=== PATIENT | male | born 2005 | race Caucasian/White ===

== ENCOUNTER 2025-09-02 08:00 | Outpatient (RCR) | payer OTHER, SELFPAY ==
--- NOTE | 2025-09-02 09:00 | BH.PSA_ITS ---
Source of Information Presenting Problems/Circumstances Problems, Referral Source, Mental Status, Client: Recently admitted for psychosis from 07/20/25-07/29/25 at [facility]. Over the course of a couple weeks prior to admission pt displayed disorganized thoughts, delusions, restorationist pre-occupation, and hallucinations. According to pt he believed that he was a prophet and ruminating extensively on paranoid delusions that certain individuals had plans to attack him. There no specific trigger however pt dean eves that increased substance use (LSD/cannabis) more than likely significantly contributed to his episode Psychiatric Presentation Psych Issues & Need for Admission Psychiatric Issues:: Recent psychosis (delusions, hallucination, racing thoughts, disorganized thoughts, restorationist pre-occupation). Hx of substance use (LSD, cannabis). Mental health impacting functioning (withdrew from college, psychiatric admission). Past Psychiatric History MH Treatment Hx Treatment History: No mental health treatment history First hospitalization:: [facility] (07/20/25-07/29/25) Most recent hospitalization:: refer above Medication Trials:: No ECT Therapy:: No Age of first mental health symptoms: Pt reports that he began to notice mental health symptoms at age 18. He reports situational stressors which would result in depressive episodes. Describe (age, circumstance, etc) any past hospitalizations: First h ospitalization occurred on 07/20/25 due to psychosis. Current providers for mental health treatment (counselor, psychiatrist, therapeutic case manager, etc.): Kei Johnson, customer expert at [place] [id number] Development & Family of Origin Childhood Significant Childhood Events: Pt reports that he was bullied quiet extensively during elementary school which contributed to his social anxiety. Family Who currently lives in your home?: Currently living with his parents and younger sister (16). Family History Family Hx of Psychiatric or AOD Problems: Mother- substance-induced psychosis. Ethnicity Culture Do you identify yourself with any particular cultural, ethnic background, or community?: No Sexuality Sexual Orientation: Heterosexual Spirituality Scientologist Do you currently identify with any organized sabianist?: Spirtual Beliefs Is there a particular form of support from this community you can use for your recovery?: No Mental Status Memory Recent Memory: Fair Remote Memory: Fair Concentration Concentration: Fair Eye Contact Eye Contact: Fair Speech Speech: Articulate Thought Process Thought Process: Logical Insight: Fair Judgment: Fair Delusions: Grandiose (Prior to psychiatric admission he believed himself to be a prophet) and Paranoid (Prior to psychiatric admission he reports delusions that individuals where planning on attacking him.) Orientation Orientation: Time, Person and Situation Appearance Appearance: Appropriate Mood Mood: Ambivalent Affect Affect: Appropriate/calm Suicide Assessment Suicidal Ideation Have you ever felt like hurting yourself?: No Physician Notification Violent Behavior/Abuse History Homicidal Ideation Do you have any homicidal thoughts? If so, explain:: No Abuse Have you ever been abused?: No Life Events Are there any other significant life events?: Hardships (Recently withdrew from college due to mental health struggles.) Describe significant life events: Hx of bullying in elementary school. Safety Do you ever feel threatened in your home? If yes, describe:: No Adult Social History Age 17 to Present Describe your current support system:: Parents are primary support. I tell my mom everything Substance Use Substance Substance Use Type: Alcohol, Hallucinogens (LSD, Mushrooms), Marijuana and Caffeine Specific Drugs What specific drugs have you used?: Hallucinogens- Pt reports using LSD three times over the summer. Insight that his mental health decompensation and psychosis began to gradually occur. Currently sober as he understands link between drug use and recent psychotic episode Cannabis- frequent daily use, insight that cannabis may be linked to his mental health decompensation and psychosis. Alcohol- very rarely IV Substance Use Do you have a history of IV use?: denies Additional Information Additional Comments:: Pt reports that his mental health began to struggle after his hallucinogen use and was exacerbated by his cannabis use. Leisure/Social Activities Interests What do you enjoy or might be interested in learning about?: Pt reports that his brain is scattered and he would like to learn ways to maintain a healthy routine and stay on track. 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 Have you ever been in the ?: No Legal History Records Have you had any past legal charges?: No Do you have any current legal charges?: No Have you ever been incarcerated? 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 What are the client's goals?: focus on psychoeducation on Bipolar as well as coping strategies for ross/hypomania and depressive episodes What are the client's strengths?: intelligent, goal-oriented, and future- oriented Diagnoses Diagnoses Diagnosis #1:: Substance-induced psychotic disorder: Interpretive Summary Interpretive Summary Interpretive Summary: Pt is a 20 year old male with dx of Bipolar I, severe, most recent episode manic. Recently admitted for psychosis from 07/20/25-07/29/25 at [facility]. Over the course of a couple weeks prior to admission pt displayed disorganized thoughts, delusions, restorationist pre- occupation, and hallucinations. According to pt he believed that he was a prophet and ruminating extensively on paranoid delusions that certain individuals had plans to attack him. There no specific trigger however pt believes that increased substance use (LSD/cannabis) more than likely significantly contributed to his episode. No previous hx of ross or psychosis. Oddly enough his mother had a similar psychotic event around his age which was substance induced. His episode occurred on the campus of his college and a few of his delusions include peers and even a professor. Currently he withdrew from his classes and is living at home. Believes that his medications are helping however continues to report racing thoughts and brain fog. Endorses moderate depression due to abupty changes (stopped college, moved back home, psychiatric admission) with feelings of loneliness and isolation. Denies HI. No overt psychosis noted since discharge with the exception of an auditory hallucination which pt described as a voice from God. Hx of LSD and cannabis use, however sober since psychiatric admission. Treatment Plan Recommendations Recommendations Guidelines Recommendations:: Meets criteria for [facility] level of care due to recent psychiatric hospitalization, limited healthy coping skills, and mental health impacting his functioning. Will admit to IOP to prevent decompensation/re-admission to psych unit, stabilize mood, increase healthy coping, and improve functioning to return to school.
--- NOTE | 2025-09-02 09:00 | BH.COMM_ITS ---
Communication Note Communication with Client Communication Note: Met with pt to complete paperwork, update any changes to pre-admission screening, and complete risk assessment. Low risk on [place] [facility] Scre[facility]. Consulted with Dr. Ortiz regarding current symptoms with orders to admit to IOP with dx of F31.13
--- NOTE | 2025-09-02 09:00 | BH.MTP ---
[facility] Treatment Plan Patient Information Program Physician:: Dr. Leonor Ortiz Primary Therapist:: Nadir Conte Psychiatric Diagnoses Psychiatric Diagnoses:: Substance-induced psychotic disorder Diagnosis Code(s):: F12.150 Estimated LOS Estimated LOS (in weeks):: 6 Problem/Goal #1 Problem/Goal #1 Stated Goal:: Stabilize psychiatric symptoms and maintain abstinence from substances to prevent recurrence of psychosis and promote safe, independent functioning. Description of Barriers: Stigma associated with mental health. First psychotic episode. Daily cannabis use for extended periods. Functional Impact: Recent psychiatric admission due to psychosis. Onset of psychosis was gradual with delusions that impacted his academic performance, attendance, and relationships with peers/professors. Also had to withdraw from courses due to psychosis. Goal Relevant Strengths/Supports: Intelligent. Hard-working. Future-oriented. Primary support are his parents. Objectives Objective #1: Stated Objective: Client will identify the relationship between substance use and psychotic symptoms Interventions: Provide psychoeducation about substance-induced psychosis, emphasizing the link between substance use and psychiatric symptoms. Discharge Criteria: Sustained abstinence from substances for a clinically appropriate period. Stabilization of psychotic symptoms?no active hallucinations, delusions, or disorganized behavior interfering with functioning.Medication adherence and understanding of treatment importance. Target Date: 10/31/25 Review Date: 10/03/25 Objective #2: Stated Objective: Client will identify and utilize 3 coping strategies to manage cravings, emotional distress, or early warning signs of relapse or psychosis. Interventions: Facilitate motivational interviewing to enhance readiness for change and support abstinence. Implement CBT and relapse prevention strategies to identify triggers, challenge maladaptive thoughts, and develop alternative coping skills. Discharge Criteria: Development of relapse prevention plan and identification of support network. Improved insight and judgment regarding the connection between substance use and psychosis. Target Date: 10/31/25 Review Date: 10/03/25
--- NOTE | 2025-09-02 09:15 | BH.MDN ---
Multi-Disciplinary Note Note 45-min Individual: Time Started:: 09:15 Date: 09/02/25 Purpose of session/treatment goals addressed:: Used the session to review program rules and expectations. Also gather pertinent psychosocial history and current symptoms. Began to develop treatment plan. Eye Contact:: Intense Motor Activity:: Slowed Appearance:: Casual Speech:: Appropriate Mood:: Anxious Affect:: Congruent Thoughts:: Linear, Logical and No evidence of hallucinations/delusions noted Staff Interventions:: rapport building, treatment planning, completed risk assessment / safety planning ([facility] S-CRSS completed) and other (obtained psychosocial history) Client Response:: Cooperative and wiling to discuss his psychosocial history and recent mental health decompensation. Pt reports mental health decompensation in July which led to a hospitalization for psychosis from 07/20/25-07/29/25 at [facility]. Over the course of a couple weeks pt displayed disorganized thoughts, delusions, denominational pre-occupation, and hallucinations. There no specific trigger however pt believes that increase substance use (LSD/cannabis) more than likely significantly contributed to his episode. No previous hx of ross or psychosis. Oddly enough his mother had a similar psychotic event around his age which was substance induced. His episode occurred on the campus of his college and a few of his delusions include peers and even a professor. Currently he withdrew from his classes and is living at home. Believes that his medications are helping however continues to report racing thoughts and brain fog. Risks/Concerns:: No risks or concerns noted. Low risk on [place] [facility]icide Screening Progress Toward Goals/Plan:: No progress noted as this is pt's first day in [facility] level of care. Plan is to admit to [facility] level of care due to prevent decompensation/ re-admission to hospital, stabilize mood, increase healthy coping, and improve functioning. Time Stopped:: 10:00
--- NOTE | 2025-09-02 10:10 | BH.SGPN.GN ---
Behaviors/Verbalizations/Mental Status: []Pt alert and oriented, neatly dressed and groomed. Eye contact fair. Motor activity appropriate. Speech within normal limits. Affect congruent, mood anxious. Thoughts linear, logical, no signs of hallucinations or delusions Client Response/Progress/Benefit: [] Pt took notes and contributed to group discussions. Attentive during psychoeducation on growth mindset. Interactive group discussion on fixed mindset in which group verbalized their current fixed mindsets and how they affect their mental health. Pt shared common fixed mindset thoughts they have. Pt shared a personal fixed thought I won?t be able to get better in school?. Pt able to connect negative impact fixed thoughts have on functioning. Pt benefited from increased awareness of growth mindset and fixed thoughts and how fixed thoughts impact their mental health. Will continue IOP tx to promote healthy coping skills, challenge distorted thoughts, and prevent decompensation.
--- NOTE | 2025-09-02 11:10 | BH.SGPN.GN ---
Behaviors/Verbalizations/Mental Status: []Pt alert and oriented, neatly dressed and groomed. Eye contact good. Motor activity appropriate. Speech within normal limits. Affect congruent, mood anxious. Thoughts linear, logical, no signs of hallucinations or delusions. Client Response/Progress/Benefit: [] Pt was an active participant during activity and discussion. Pt did well to remain attentive and participate as group worked on identifying characteristics and benefits of adopting a growth mindset. Worked with fellow participants in reframing the example fixed thoughts into growth mindset thoughts. Pt worked on changing own fixed thought. Pt?s reframed thought was ?I can keep getting help.? Pt attentive during discussion about different strategies that can help with fostering a growth mindset. Pt appeared to benefit from challenging own thoughts and engaging in the activity. Pt will continue IOP tx to prevent decompensation, gain healthy coping skills, and reduce use of substances. Narrative Note: []
--- NOTE | 2025-09-04 09:00 | BH.SGPN.GN ---
Behaviors/Verbalizations/Mental Status: [] Pt alert and oriented, Casually dressed and groomed. Eye contact good. Motor activity appropriate. Speech within normal limits. Affect congruent, mood anxious. Thoughts linear, logical, no signs of hallucinations or delusions. Reviewed pt?s symptom tracker today, denies suicidal ideation, plan, and intent.09/04/25. Client Response/Progress/Benefit: []Pt was an active participant in group discussions. Attentive. Per patients daily symptom tracker, pt indicates a 0/5 for depression and a 3/5 for anxiety, with 5 being severe. Pt's mental health positive was getting together a gym routine and working out regularly which, he states had been a goal for a long time. His other mental health win was making through his first few days of IOP, and was encouraged by peers who gave advice about the program and how to get the most out of it. Pt's stressor was showing up a few minutes late to group, stating that not being early makes him very anxious. Pt was supportive and attentive to others in the group. Pt seemed to benefit from support from peers. Will continue IOP tx to promote healthy coping mechanisms, reduce negative thinking patterns, and prevent decompensation.
--- NOTE | 2025-09-04 10:10 | BH.SGPN.GN ---
Behaviors/Verbalizations/Mental Status: [] Pt alert and oriented, casually dressed and groomed. Eye contact good. Motor activity appropriate. Speech within normal limits. Affect constricted, mood anxious. Thoughts linear, logical, no signs of hallucinations or delusions. Client Response/Progress/Benefit: [] Pt responded well to session AEB pt listening attentively to others and providing input throughout group discussions. Pt worked with group to identify potential barriers to effective problem-solving. Pt attentive and engaged during psychoeducation about the different problem-solving styles (impulsive-careless, avoidant, and problem solving). Pt shared current problem-solving style they utilize is avoidance style.? Pt seemed to benefit from increased awareness of current problem-solving style and the impact this style has on their mental health. Will continue IOP tx to prevent decompensation, improve daily functioning, and increase healthy coping skills.
--- NOTE | 2025-09-04 11:00 | BH.SGPN.GN ---
Behaviors/Verbalizations/Mental Status: []Client alert and oriented, casually dressed and groomed. Eye contact good. Motor activity appropriate. Speech within normal limits. Affect congruent, mood euthymic. Thoughts linear, logical, no signs of hallucinations or delusions. Client Response/Progress/Benefit: [] Pt engaged in session AEB contributing to discussion and engaging in small group. Attentive during discussion on strategies for more effectively solving problems in personal life. Pt participated in small group for activity and did well practicing problem-solving skills with the group in the moment. Pt identified a current problem they are struggling to solve as: managing mental health sx in healthy ways. Reports next step in resolving this as: continue IOP to learn new coping skills. Appeared to benefit from gaining strategies to help Pt better manage daily problems. Will continue IOP tx improve distress tolerance, challenge distortions, and prevent decompensation. Narrative Note: []
--- NOTE | 2025-09-06 09:00 | BH.SGPN.GN ---
Behaviors/Verbalizations/Mental Status: [] Eye contact is good. Motor activity is appropriate. Appearance is casual. Speech is Appropriate. Mood is anxious. Affect is congruent. Thoughts are linear and logical. No evidence of psychosis. Reviewed daily check in sheet and no reports of suicidal ideations or intent. Client Response/Progress/Benefit: [] Pt participated when prompted. Attentive. Daily symptom tracker notes 2/5 for anxiety and 1/5 for depression. According to pt he feels ?less stressed and irritable?. Believes that he is able to ?let things go easier?. He identified situational stressors however overall reports improvement since discharging from the psychiatric unit. Progress noted. Benefited from group support, encouragement, and feedback. Will continue in IOP to prevent decompensation/re-admission, stabilize mood, and improve functioning to return to school. Narrative Note: []
--- NOTE | 2025-09-06 09:40 | PCM.BH.PSYEV ---
Intake Vital Signs 09/06/25 11:01 Height 1.75 m Weight: 81.647 kg BP 144/76 H Pulse 78 Intake Visit Reasons: recent psychosis Allergies No Known Allergies Allergy (Verified 09/06/25 10:49) Medications ?Medication ?Instructions ?Recorded ?Confirmed ?Type lithium carbonate 600 mg capsule 1,200 mg PO QHS 09/06/25 09/06/25 History olanzapine 15 mg tablet 15 mg PO DAILY 09/06/25 09/06/25 History HPI () History of Present Illness History provided by: patient Chief complaint: IOP intake for psychosis HPI: Kevin is a 20y/o male who presented to [facility] IOP program for further evaluation and treatment of substance-induced psychotic disorder. Patient recently admitted to [facility] Psych unit from 07/20/2025 through 07/29/2025 due to psychosis. Reportedly patient went off to college several years ago and since 2022 has had escalating cannabis use and has used high doses of acid and mushrooms several times, the past 6 months he has had heavy daily cannabis use and notes that on 07/12 after smoking he became very paranoid and thought that people were trying to kill him. During that time he also had racing and disorganized thoughts with latter-day preoccupation and had heard a voice from God. The symptoms escalated and ultimately his mother took him to the hospital and he was admitted. While he was there he still struggled with delusions at the beginning however by discharge his psychotic symptoms significantly improved and he primarily was having difficulty with racing thoughts. Today patient reports he still having some problem with racing thoughts but that it is progressively improving with the Zyprexa and lithium, did recently have increase in lithium and decrease in Zyprexa, he reports that this was based on blood levels of the lithium and not any resurgence of symptoms. Notes tolerating Zyprexa and lithium fairly well but did initially have increased appetite but that is leveled off and notes sometimes he feels groggy but that his energy is average but will get sleepy around 3 or 4 and then around 730 or 8. Concentration and memory are improving, sleeping well but sleeping what he thinks is too much, around 12 hours a day. Appetite is good and is leveling out. No crying spells, no SI/HI. No AH/VH at this time. Does report he had an episode when he first smoked where he felt very paranoid but after he went to bed and woke up he felt fine. Notes that he does think that the acid and mushrooms may have also contributed to some underlying paranoia in addition to the cannabis but had not used either immediately preceding the psychotic episode. 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 [employer] and has been keeping busy, presently out of school due to some scheduling problems and being in hospital but hopeful to go back next semester Current psychiatric medications: Zyprexa 15 mg and lithium 1200 mg Side effect concerns: A little drowsy with the medciations Past psychiatric treatment Hx: -Psychiatrist: Is now seeing someone at [place] [id number] -Psychiatric hospitalizations: Only hospitalization was last month for the psychotic episode -Suicide attempts: No -NSSI: Denies -Medication trials: Reports he was on 50 mg of Zoloft for anxiety and had been on it for a long time and did well on it, had been on it until early July when he was hospitalized -ECT or TMS?: No Medical Hx: -Medical problems: No -Surgeries: No -Allergies: Season -Medications: See home med list Substance use Hx: -Alcohol: Infrequently -Drugs: No current drug use, committed to not using marijuana moving forward, other than acid and mushrooms denies any other substance use -Rehab: Denies -Tobacco use: No Family Hx: -Mental illness: Mom had psychotic episode after drug use when she was around his age and no longer is on medication, sister with anxiety and depression -Suicide attempts or completions: No -Substance Use: No -General medical conditions: No Psychosocial: -Born/raised: [place], [place] -Childhood: Reports he had a good childhood except in elementary school he was bullied which caused anxiety -Parents: Presently living with mom and dad and gets along with them well -Siblings: Has a sister who he also lives with presently -Current living situation and location: [place] with mom, dad, and sister -Marital status: Single -Children: Denies -Support system: Family -Highest level of education: Currently going to [employer] and living in an apartment off campus. 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 -Faith affiliation: Denies - hx: Denies -Access to guns: No -Legal problems: Denies Medical ROS: General: Denies fever HENT: Denies headache EYES: Denies acute changes in vision Resp: denies shortness of breath Cardiac: Denies chest pain GI: denies changes in bowel, denies nausea/vomiting : Denies changes in urination MSK: Denies weakness Neuro: Denies any numbness/tingling Heme: Denies any bleeding or bruising Skin: Denies rashes Psychiatric: As above Exam () Mental Status Exam- Psych () Appearance casually dressed, adequately groomed and no apparent distress Attitude cooperative and calm Activity/Motor Behavior psychomotor slowing Speech other (Little bit slow) Mood anhedonic Affect constricted Thought Process linear and other (At times would have to ask me to repeat a question but then able to answer ) Thought Content no delusions and no hallucinations Suicidal Ideation none Homicidal Ideation none Attention impaired Concentration impaired Sensorium/Orientation awake and alert Memory/Cognition intact Insight fair Judgement fair Assessment & Plan () Assessment & Plan (1) Substance-induced psychotic disorder: Plan: 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 Patient had been smoking marijuana heavily for 6 months and became paranoid, he thought people were going to kill him and his thoughts became disorganized and were racing. He had latter-day delusions and auditory hallucinations. Presently on Zyprexa and lithium, reports his thoughts are slowing down and has no further psychotic symptoms per patient. Recently had increase in lithium and decrease in Zyprexa and this is being actively managed on an outpatient basis, will continue medications at this time. Plan Detail Assessment: The patient will begin IOP in Behavioral Health at [facility]. The program's structure, support, education, and therapy aim to prevent deterioration of symptoms and avoid the need for PHP or inpatient hospitalization. I have a reasonable expectation that the patient will make practical improvements in their presenting symptoms and will be discharged to a lower level of care. Charges/Coding Behavior Health Behavior Health Psychiatric Evaluation: 92868 Psych Diag Exam w/ Medical Services
--- NOTE | 2025-09-06 09:41 | BH.PSY.EVA_ITS ---
Initial Treatment Plan Patient Information Visit Information: ADMISSION DATE: EXPECTED LOS: 6-8 weeks Diagnoses:: Substance induced psychotic disorder Problems/Symptoms Problem #1:: Substance-induced psychotic disorder Symptom:: paranoid, he thought people were going to kill him and his thoughts became disorganized and were racing. He had mandaen delusions and auditory hallucinations
--- NOTE | 2025-09-06 10:10 | BH.SGPN.GN ---
Behaviors/Verbalizations/Mental Status: [] Pt alert and oriented, casually dressed and groomed. Eye contact good. Motor activity appropriate. Speech within normal limits. Affect congruent, mood euthymic. Thoughts linear, logical, no signs of hallucinations or delusions. Client Response/Progress/Benefit: [] Client engaged during group session as evidenced by contributions during group discussions, appearing to listen to others, and taking notes. Client engaged in small group discussion about barriers that keep people from having difficult conversations. Group identified potential reasons individuals avoid difficult conversations which included; feeling uncomfortable, reaction of others, fear, and not in a good place mentally. Group also identified benefits to having crucial conversations. Client seemed to benefit from increased awareness and education about importance of having difficult conversations and recognizing the impact of avoiding such conversations. Client to continue IOP to prevent decompensation, increase healthy coping, and improve functioning. Narrative Note: []
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
[2025-09-06 11:01] VITALS: BP 144/76; PULSE 78
--- NOTE | 2025-09-06 11:10 | BH.SGPN.GN ---
Behaviors/Verbalizations/Mental Status: [] Pt alert and oriented, casually dressed and groomed. Eye contact good. Motor activity appropriate. Speech within normal limits. Affect congruent, mood euthymic. Thoughts linear, logical, no signs of hallucinations or delusions. Client Response/Progress/Benefit: [] Pt was an active participant, engaged in activities and discussion. Pt able to identify ways they negatively contribute to crucial conversations and pt was engaged during psychoeducation of the different ways to build interpersonal effectiveness skills. Pt and peers practiced mirroring and active listening in partners. Group reviewed DEAR [employer] and used the handout to help map out how they would like a crucial conversation in their life to go. Pt shared with group that they want to have a crucial conversation with girlfriend about taking a break from dating so he can focus on his MH. Pt will continue IOP tx to prevent decompensation and improve daily functioning. Narrative Note: []
--- NOTE | 2025-09-16 10:10 | BH.SGPN.GN ---
Behaviors/Verbalizations/Mental Status: []Pt alert and oriented, casually dressed and groomed. Eye contact good. Motor activity appropriate. Speech within normal limits. Affect congruent, mood content and anxious. Thoughts linear, logical, no signs of hallucinations or delusions. Client Response/Progress/Benefit: []Pt participated during small group discussions. Attentive during psychoeducation about defense mechanisms. Showed engagement during small group discussions and helped group identify which defense mechanisms were maladaptive, adaptive, or ?somewhere in the nina.? Pt worked with small group on identifying how each defense mechanism can impact mental health and gave examples. Pt stated he learned that he uses rationalization at times.?Pt reported benefit from normalizing why people use maladaptive defense mechanisms. Seemed to benefit from gaining awareness about the different defense mechanisms. Pt to continue IOP tx to prevent decompensation, improve daily functioning, and gain healthy coping skills. Narrative Note: []
== END 2025-09-06 23:59 ==
LOC: BHIOP 08:00
PROVIDERS: Referring Provider Internal Medicine; Visit Provider Internal Medicine
DX: F12.150 Cannabis abuse with psychotic disorder with delusions (principal)
CPT/HCPCS: S9480; 90834; 90853

== ENCOUNTER 2025-09-09 08:36 | Outpatient (RCR) | payer OTHER, SELFPAY ==
--- NOTE | 2025-09-09 09:00 | BH.SGPN.GN ---
Behaviors/Verbalizations/Mental Status: [] Pt alert and oriented, neatly dressed and groomed. Eye contact good. Motor activity appropriate. Speech within normal limits. Affect constricted, mood euthymic. Thoughts linear, logical, no signs of hallucinations or delusions. Reviewed pt?s symptom tracker, no risk for suicidal ideation, plan, or intent 09/09/25. Client Response/Progress/Benefit: []Pt was an active participant in group discussions. Attentive. Able to identify mental health wins including ?I went to a trunk or treat event and it was actually fun? and pt shared he usually would shut down, but he used his calming skills. 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 The group offered pt suggests managing this stressor and emotional support which pt reported was helpful. Pt is feeling ?better than neutral? this morning. Pt receptive to feedback from peers. Benefited from group support, encouragement, and feedback. Progress noted. Will continue IOP tx to prevent decompensation, improve self-confidence, and gain healthy coping skills. ??? Narrative Note: []
--- NOTE | 2025-09-09 10:10 | BH.SGPN.GN ---
Behaviors/Verbalizations/Mental Status: []Eye contact good, Motor activity is appropriate, Appearance is neat. Speech appropriate. Mood calm. Affect congruent. Thoughts are linear and logical. No evidence of psychosis. Client Response/Progress/Benefit: [] Pt was an active participant during interactive group discussions. Attentive during discussion of the different types of boundaries (rigid, porous, healthy) Took notes and provided input. Contributed to the discussion on defining boundaries and the benefits and barriers to them. Active participant in the boundary continuum activity. Identified boundary type as more rigid and stating that he struggles with setting boundaries too quickly. Group discussed mental health benefits to establishing boundaries, and situations in which lessening boundaries are appropriate. Pt benefited from increased awareness and insight on the importance of boundary setting. Pt will continue in IOP to prevent decompensation, improve daily functioning, and gain healthy coping skills. ? Narrative Note: []
--- NOTE | 2025-09-09 11:10 | BH.SGPN.GN ---
Behaviors/Verbalizations/Mental Status: []Pt alert and oriented, casually dressed and groomed. Eye contact fair. Motor activity appropriate. Speech within normal limits. Affect congruent, mood anxious. Thoughts linear, logical, no signs of hallucinations or delusions. Client Response/Progress/Benefit: [] Client responded well to session AEB listening attentively to peers, providing input, as well as taking notes throughout. Group discussed different styles of boundary setting. Participated in small group discussion brainstorming various strategies for improving healthy boundary setting. Pt took time to complete reflection on which skills would like to implement to improve boundaries. Seemed to benefit from increased awareness of how different boundary styles can impact mental health.Pt stated he learned that he struggles most with respecting others time boundaries because he is often late to places. Pt reported he wants to work on improving his boundaries by using reminders and alarms to make sure he leaves for appointments on time. Will continue IOP tx prevent decompensation, challenge distorted thoughts, and increase consistent use of healthy coping skills.
--- NOTE | 2025-09-11 09:00 | BH.SGPN.GN ---
Behaviors/Verbalizations/Mental Status: [] Pt alert and oriented, Casually dressed and groomed. Eye contact fair. Motor activity appropriate. Speech within normal limits. Affect congruent, mood depressed. Thoughts linear, logical, no signs of hallucinations or delusions. Reviewed pt?s symptom tracker today, denies suicidal ideation, plan, and intent.09/11/25. Client Response/Progress/Benefit: []Pt was an active participant in group discussions. Attentive. Per patients daily symptom tracker, pt indicates a 2/5 for depression and a 2/5 for anxiety, with 5 being severe. Pt's mental health positive was contacting his academic advising director about his current school progress and classes that he needs to take in order to get back on track. Pt stated that he will have to take a summer class, which is not ideal. Pt's other mental health win was getting in contact with a friend who could get him a fellowship job over the summer. Pt's stressor is figuring out how to balance his summer fellowship and the class that he will have to take to stay on track with school. Pt stated that he is going to talk to his advisor about this. Pt seemed to benefit from support from peers. Will continue IOP tx to promote healthy coping mechanisms, reduce negative thinking patterns, and prevent decompensation.
--- NOTE | 2025-09-11 10:30 | BH.MDN ---
Multi-Disciplinary Note Note 30-min Individual: Time Started:: 10:30 Date: 09/11/25 Purpose of session/treatment goals addressed:: Utilized session to review current progress and symptoms. Provided psychoeducation on link between cannabis and psychosis. Eye Contact:: Good Motor Activity:: Appropriate Appearance:: Casual Speech:: Appropriate Mood:: Depressed Affect:: Congruent Thoughts:: Linear, Logical and No evidence of hallucinations/delusions noted Staff Interventions:: psychoeducation on: (Link between cannabis and psychosis.), CBT techniques, treatment planning and goal setting Client Response:: pt reports being more depressed this week. Met with his college advisors and learned of obstacles to getting back to college. Admits to struggling with recent changes and transition from college life (academics, social events, etc) to living back at home after his psychiatric admission. 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 Also reports limited social outlets I have no friends around here. Attempted to reframe additional free time as an opportunity and stressed the importance of rest after psychotic episode. We used the session to discuss recent psychoeducation on the link between cannabis and psychosis. Pt has insight that his cannabis and LSD use significantly impacted prolonged psychosis. Currently rare urges for cannabis however consequences are still very fresh in his mind. Using consequences as relapse prevention strategy. He plans on returning to college next semester and is anxious about campus triggers. Risks/Concerns:: No risk or concerns noted. Denies any suicidal ideations, plan, or intent. Progress Toward Goals/Plan:: Consistent and engaged in IOP. According to pt his outpatient provider increased his [place] last week and then lowered it this week. Mainly due to most recent [place] levels. The increase in medication appears to have caused drowsiness and grogginess. Could have have contributed to higher levels of depression. Nonetheless he believes the medications to be helpful in stabilizing his mood stating his is less irritability and restless. He would like individual sessions to focus on psychoeducation on Bipolar as well as coping strategies for ross/hypomania and depressive episodes. Time Stopped:: 11:00
--- NOTE | 2025-09-11 11:10 | BH.SGPN.GN ---
Behaviors/Verbalizations/Mental Status: [] Pt alert and oriented, casually dressed and groomed. Eye contact good. Motor activity appropriate. Speech within normal limits. Affect congruent, mood euthymic. Thoughts linear, logical, no signs of hallucinations or delusions. Client Response/Progress/Benefit: [] Pt was attentive and contributed in small and larger group discussion. Pt completed strengths exploration worksheet and identified personal strengths to include: ambition and logical. Pt able to acknowledge how these strengths are helping them and can continue to help pt in their mental health journey. Pt shared that working to recognize these personal strengths more consistently will help improve pt?s mood and increase self-worth. Shared wanting to focus on fostering personal strengths by tracking progress. Pt to continue IOP tx to promote use of healthy coping skills, increase self-confidence, and reduce negative thinking patterns. Narrative Note: []
--- NOTE | 2025-09-13 09:00 | BH.SGPN.GN ---
Behaviors/Verbalizations/Mental Status: [] Eye contact is good. Motor activity is appropriate. Appearance is casual. Speech is Appropriate. Mood is anxious. Affect is congruent. Thoughts are linear and logical. No evidence of psychosis. Reviewed daily check in sheet and no reports of suicidal ideations or intent. Client Response/Progress/Benefit: [] Pt participated when prompted. Daily symptom tracker notes 2/5 for anxiety. Very brief check-in. Dealing with uncertainty, stress, and anxiety over a significant stressor. Pt was un-enrolled from his college after his psychotic episode. He is concerned this will impact his scholarships if he has to re-enroll. Group encouraged him to reach out to the admissions and financial counselor departments at the college to reduce ruminations. Benefited from group support, encouragement, and feedback. Will continue in IOP to stabilize mood, prevent decompensation/re-admission to psych unit, and to improve functioning to return to school. Narrative Note: []
--- NOTE | 2025-09-13 10:10 | BH.SGPN.GN ---
Behaviors/Verbalizations/Mental Status: [] Motor activity is appropriate. Appearance is casual. Speech is Appropriate. Mood is euthymic. Affect is full. Thoughts are linear and logical. No evidence of psychosis. Client Response/Progress/Benefit: [] Pt was an engaged participant AEB listening attentively to others, taking notes, and providing feedback in small group discussions. Attentive during psychoeducation AEB by note taking and providing some input. Pt worked along with peers in small groups to define inappropriate guilt and appropriate guilt. Interactive discussion on examples of both inappropriate and appropriate guilt. Pt able to connect impact inappropriate guilt can have on MH. Benefited from increased awareness of guilt and the differences between appropriate and inappropriate guilt. Pt to continue IOP tx to prevent decompensation, gain healthy coping skills, and increase emotional regulation skills. Narrative Note: []
--- NOTE | 2025-09-13 11:10 | BH.SGPN.GN ---
Behaviors/Verbalizations/Mental Status: [] Pt alert and oriented, casually dressed and groomed. Eye contact good. Motor activity appropriate. Speech within normal limits. Affect congruent, mood euthymic. Thoughts linear, logical, no signs of hallucinations or delusions. Client Response/Progress/Benefit: [] Pt was an engaged participant AEB listening attentively to others and providing input throughout group. Pt worked within their small group to identify strategies to manage inappropriate guilt. Identified a personal example of inappropriate guilt as ?beating self up over neg reaction with someone over and over again.? Pt wants to work on combatting inappropriate guilt by ?working through the conflict.? Pt seemed to benefit from learning about strategies to manage appropriate and inappropriate guilt. Pt to continue IOP tx to prevent decompensation, gain healthy coping skills, and increase self-confidence. Narrative Note: []
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
--- NOTE | 2025-09-16 11:10 | BH.SGPN.GN ---
Behaviors/Verbalizations/Mental Status: []Pt alert and oriented, casually dressed and groomed. Eye contact good. Motor activity appropriate. Speech within normal limits. Affect congruent, mood content. Thoughts linear, logical, no signs of hallucinations or delusions. Client Response/Progress/Benefit: [] Pt responded well to session, participating in activity and small group discussion. Group reviewed the rest of the defense mechanisms and discussed how these are adaptive, maladaptive, or somewhere in the nina. Pt's defense mechanisms included anticipation, denial, and sublimation. Shared that sublimation has been helpful in coping with tough emotions. Pt listened to vocational psychologist teach different skills to help pt?s cope with or change their defense mechanisms. Pt appeared to benefit from gaining insight to the different defense mechanisms and learning coping skills. Pt will continue IOP tx to prevent decompensation, gain healthy coping skills, and improve daily functioning. Narrative Note: []
--- NOTE | 2025-09-18 09:05 | BH.SGPN.GN ---
Behaviors/Verbalizations/Mental Status: []Eye contact is good. Motor activity is appropriate. Appearance is casual. Speech is Appropriate. Mood is content. Affect is congruent. Thoughts are linear and logical. No evidence of psychosis. Reviewed daily check in sheet and pt denies SI, plan, or intent as of this date 09/18/25. Client Response/Progress/Benefit: [] Pt was an active participant in group discussions. Attentive. Did well to identify 2 mental health wins, which included being able to take his grandfather out for veterans day. Reported enjoying being able to spend quality time with him. Additional win noted as making more of an effort to get back into cooking for himself. Shared it has been an enjoyable process. Stressor noted as ongoing uncertainty regarding where he will be living for the next semester. Pt acknowledges a need to reach out to his roommates and discuss specific plans. Appeared to benefit from provided support, encouragement, and feedback. Will continue IOP tx to improve mood stability, develop healthy coping repertoire, and prevent decompensation. Narrative Note: []
--- NOTE | 2025-09-18 10:10 | BH.SGPN.GN ---
Behaviors/Verbalizations/Mental Status: []Pt alert and oriented. Casually dressed and groomed, eye contact good. Motor activity appropriate. Speech within normal limits. Affect congruent. Mood calm. Thoughts linear, logical, no signs of hallucinations or delusions. Client Response/Progress/Benefit: [] Pt was an active participant, taking notes and engaging in group discussion and activity. Connected with the topic of pitfalls and participated in group discussion about barriers that prevent from choosing a healthier path to mental wellness. Pt participated in discussion on pitfalls, what they are, and ways that we stay stuck in them. Group worked together to identify examples of internal and external pitfalls, including depression, isolation, and suicidal thoughts. Pt benefited from group and psychoeducation on pitfalls as pt learned to better identity potential barriers to improving mental health symptoms. Pt was an active participant in activity meant to demonstrate pitfalls and how to cope with them. Pt will continue IOP tx decrease negative thinking patterns, improve daily functioning, and prevent decompensation.
--- NOTE | 2025-09-18 10:10 | BH.SGPN.GN ---
Behaviors/Verbalizations/Mental Status: []Pt alert and oriented, casually dressed and groomed. Eye contact good. Motor activity appropriate. Speech within normal limits. Affect congruent, mood anxious. Thoughts linear, logical, no signs of hallucinations or delusions. Client Response/Progress/Benefit: [] Pt was an active participant AEB taking notes and engaging in group activity. Connected with the topic of pitfalls and listened to group discussion on barriers that prevent from choosing a healthier path to mental wellness. Group worked together to identify examples of personal pitfalls. These examples included; having unrealistic expectations, not trusting, not asking for help, and shutting down. Pt benefited from group as pt learned to better identify potential barriers to improving mental health symptoms. Pt will continue IOP tx to promote healthy coping skills, challenge negative thoughts, and prevent decompensation.
--- NOTE | 2025-09-18 11:10 | BH.SGPN.GN ---
Behaviors/Verbalizations/Mental Status: []Client alert and oriented, casually dressed and groomed. Eye contact good. Motor activity appropriate. Speech within normal limits. Affect congruent, mood content. Thoughts linear, logical, no signs of hallucinations or delusions. Client Response/Progress/Benefit: [] Pt receptive of session, engaged throughout AEB Pt actively listening and contributing to discussion as well as taking notes.? Pt participated in the experiential activity and did well to communicate ideas with peers and manage emotions. Pt attentive as group processed how the emotions and perspective of the group impacted the activity. Pt was highly encouraging during the activity which helped peers. Group worked together to identify different coping skills to help manage pitfalls. Pt identified pitfalls they struggle with as sleeping, being impulsive, and not asking for help. Pt plans to work on their pitfall by getting a process planner and starting to be proactive. ?Benefited from identifying personal pitfalls and strategies to overcome these pitfalls. Pt will continue IOP tx to prevent decompensation, improve daily functioning, and reduce negative thinking patterns. Narrative Note: []
--- NOTE | 2025-09-19 09:00 | BH.SGPN.GN ---
Behaviors/Verbalizations/Mental Status: [] Eye contact is good. Motor activity is appropriate. Appearance is casual. Speech is Appropriate. Mood is anxious. Affect is full. Thoughts are linear and logical. No evidence of psychosis. Reviewed daily check in sheet and no reports of suicidal ideations Client Response/Progress/Benefit: [] Pt participated when prompted. Attentive. Able to identify mental health wins and healthy habits. Primary tasks involve working through obstacles to get back to college next semester. He visted [employer] this week and toured some housing options. Experienced a few triggers and memories associated with recent psychotic episode and substance abuse, however denied any significant urges. Medication compliant. Remains sober. Denies any significant distress aside from situational stressor. Not avoiding and appears motivated. Progress noted. Benefited from group support, encouragement, and feedback. Will continue in IOP to prevent decompensation, stabilize mood, and improve functioning to return to school. Narrative Note: []
--- NOTE | 2025-09-19 10:15 | BH.SGPN.GN ---
Behaviors/Verbalizations/Mental Status: []Pt alert and oriented, neatly dressed and groomed. Eye contact good. Motor activity appropriate. Speech within normal limits. Affect constricted, mood euthymic. Thoughts linear, logical, no signs of hallucinations or delusions. Client Response/Progress/Benefit: [] Pt responded well to session, contributing to discussion and engaged during the activity. Group identified the benefits of change which included: increased confidence, progressing towards goals, and improving mental and physical health. Worked with the group to identify barriers to change, which included: uncomfortable emotions such as anxiety, lack of energy, lack of support, and fear of the unknown. Pt participated along with group in activity where they identified and discussed the emotions related to change. Benefited from increased awareness and understanding of emotions, benefits, and barriers related to change. Will continue IOP tx to prevent decompensation, improve daily functioning, and gain healthy coping skills. Narrative Note: []
--- NOTE | 2025-09-19 11:15 | BH.MDN_ITS ---
Multi-Disciplinary Note Note 30-min Individual: Time Started:: 11:15 Date: 09/19/25 Purpose of session/treatment goals addressed:: Reviewed current symptom and progress in IOP. Addressed treatment goal 1, obj 1. Reviewed educational handouts on link between cannabis and psychosis. Eye Contact:: Good Motor Activity:: Appropriate Appearance:: Casual Speech:: Appropriate Mood:: Anxious Affect:: Congruent Thoughts:: Linear, Logical and No evidence of hallucinations/delusions noted Staff Interventions:: psychoeducation on: (Link between psychosis and cannabis), rapport building and discharge planning Client Response:: The patient reviewed educational handouts provided during the previous session regarding the relationship between cannabis use and psychosis. He demonstrated engagement and was able to participate in a meaningful discussion with the therapist about the material. The patient exhibited fair insight and expressed motivation to maintain abstinence from cannabis. The patient reported that his parents have been highly supportive of his recent mental health and substance use challenges, sharing their own experiences with the negative consequences of substance use. He stated that the handouts were helpful, particularly the scientific explanation of how cannabis can exacerbate psychotic symptoms.Current psychosocial stressors include residing at home and uncertainty regarding the upcoming academic semester. The patient recently completed a medical withdrawal from college, which he acknowledged was necessary but has resulted in feeling ?behind? academically. This disruption has contributed to increased anxiety related to his educational trajectory and future plans. Therapeutic interventions included cognitive reframing and practicing principles of radical acceptance. The patient endorsed missing the independence and social engagement associated with living on campus and reported occasional difficulty adjusting to his current living situation. Risks/Concerns:: Denies any suicidal thoughts. Progress Toward Goals/Plan:: Progress noted. Pt was proactive regarding college uncertainties. He met with clinical advisor this week and emailed asic engineer for clarification on his scholarship. He has also developed a back up plan for housing next semester. Remains sober from all substances as well as desire to remain sober. Overall reports stability for several weeks. He missed one dose of his medications and did feel more depressed indicating these medications are beneficial. Reports limited symptoms or mental health distress aside from situational stressors. Denies any hallucinations, delusions, paranoia, or psychosis. Consistent with IOP. Currently linked with outpatient school psychologist assistant. We discussed discharge in the upcoming 2 weeks if he remains stable. He is going to discuss getting linked with outpatient therapist at same agency as potline monitor during next visit. Will continue in IOP to prevent decompensation, stabilize mood, and increase healthy coping. Plan is to develop relapse prevention and calming strategies. Time Stopped:: 11:45
--- NOTE | 2025-09-23 09:00 | BH.SGPN.GN ---
Behaviors/Verbalizations/Mental Status: [] Eye contact is good. Motor activity is appropriate. Appearance is casual. Speech is Appropriate. Mood is anxious. Affect is congruent. Thoughts are linear and logical. No evidence of psychosis. Reviewed daily check in sheet and no reports of suicidal ideations Client Response/Progress/Benefit: [] Pt participated when prompted. Attentive however limited engagement. Remains medication compliant and sober. Situational stressors related to returning to school remain primary stressor. Progress noted. Benefited from group support, encouragement, and feedback. Will continue in IOP to prevent decompensation/re-admission to psych unit, increase healthy coping, and improve functioning to return to school. Narrative Note: []
--- NOTE | 2025-09-23 10:10 | BH.SGPN.GN ---
Behaviors/Verbalizations/Mental Status: [] Eye contact is good. Motor activity is appropriate. Appearance is casual. Speech is Appropriate. Mood is content. Affect is congruent. Thoughts are linear and logical. No evidence of psychosis. Client Response/Progress/Benefit: [] Pt engaged participant AEB listening to others, engaging in activity, and providing feedback throughout. Attentive during psychoeducation and provided insight into obstacles that impede mental wellness. Pt shared with group current mental health reality and desired mental health reality. Identified barriers to desired reality which included difficulties with communication, procrastination, and distortions. Benefited from taking look at current mental health state and obstacles for progress. Pt to continue in IOP tx to prevent decompensation, stabilize mood, and improve functioning. Narrative Note: []
--- NOTE | 2025-09-23 11:30 | BH.MDN_ITS ---
Multi-Disciplinary Note Note 30-min Individual: Time Started:: 11:30 Date: 09/23/25 Purpose of session/treatment goals addressed:: Reviewed current symptoms and stressors. Address treatment goal #1, objective 2 Eye Contact:: Good Motor Activity:: Appropriate Appearance:: Casual Speech:: Appropriate Mood:: Dysthymic Affect:: Congruent Thoughts:: Linear, Logical and No evidence of hallucinations/delusions noted Staff Interventions:: psychoeducation on: (Bipolar, Relapse prevention) Client Response:: Pt remains consistent with [facility] level of care. He denies any issues with psychosis or racing thoughts. Medication compliant. Remains sober as well. Denies significant depression or anxiety. Remains stressed due to situational stressors related to returning to college (housing, cost, scholarships). At pt's request provided basic psychoeducation on Bipolar. Discussed manic, hypomanic, and depressive episodes as well as warning signs. Provided educational handout. Client was also introduced to and began to work on the Cannabis Craving Management Worksheet, which included identifying personal craving triggers, challenging unhelpful thoughts, and developing coping strategies such as urge surfing, delay/distraction techniques, and a person alized response plan. Agreeable to taking this home to further complete. Client demonstrated insight into craving management concepts and actively participated in completing all sections of the worksheet. Risks/Concerns:: Denies suicidal ideations. Progress Toward Goals/Plan:: Progress noted. Pt reports that his racing thoughts continue to improve. Reports increased thought clarity which he attributes to being sober and adjusting to medications. He visited his college this past weekend and did experience triggers related to cannabis use however denies urges. Current strategies for relapse prevention include thinking about consequences (i.e. psychosis) and distraction. Will complete cannabis craving worksheet to develop strategies to manage urges to use as well as healthy ways to cope with emotional distress. Time Stopped:: 12:00
--- NOTE | 2025-09-25 09:00 | BH.SGPN.GN ---
Behaviors/Verbalizations/Mental Status: [] Pt alert and oriented, Casually dressed and groomed. Eye contact good. Motor activity appropriate. Speech within normal limits. Affect congruent, mood anxious. Thoughts linear, logical, no signs of hallucinations or delusions. Reviewed pt?s symptom tracker today, denies suicidal ideation, plan, and intent.09/25/25 Client Response/Progress/Benefit: []Pt was an active participant in group discussions. Attentive. Per patients daily symptom tracker, pt indicates a 1/5 for depression and a 2/5 for anxiety, with 5 being severe. Pt's reported that his mental health positive was getting through having teeth filled at the dentist, which he stated he was anxious for. Pt's other mental health win was doing his laundry. Pt's stressor was being told at the dentist that he has to have his wisdom teeth removed. Pt stated that he is nervous because he has heard about other people's bad experiences. Pt's peers reassured him that the procedure was not as bad as he thought, which made pt feel more relaxed. Pt was supportive and attentive to others in the group. Pt seemed to benefit from support from peers. Will continue IOP tx to promote healthy coping mechanisms, decrease negative thinking patterns, and prevent decompensation.
--- NOTE | 2025-09-25 10:15 | BH.SGPN.GN ---
Behaviors/Verbalizations/Mental Status: [] Client alert and oriented, casually dressed and groomed. Eye contact good. Motor activity appropriate. Speech within normal limits. Affect congruent, mood euthymic. Thoughts linear, logical, no signs of hallucinations or delusions. Client Response/Progress/Benefit: [] Client responded well to session AEB taking notes throughout and listening attentively to others. Client was attentive throughout group activity identifying famous individuals and how they overcame failure to be successful. Client helped group identify how fear of failure can impact mental health and relationships. Group identified it leads to self-sabotage, not trying, avoidance, and isolation. Client participated in experiential activity, working with group members to problem solve. Appeared to benefit from increased knowledge of fear of failure. Will continue IOP tx to improve self-confidence, reduce distorted thinking patterns, and prevent decompensation. Narrative Note: []
--- NOTE | 2025-09-25 11:15 | BH.SGPN.GN ---
Behaviors/Verbalizations/Mental Status: [] Client alert and oriented, casually dressed and groomed. Eye contact good. Motor activity appropriate. Speech within normal limits. Affect congruent, mood euthymic.Thoughts linear, logical, no signs of hallucinations or delusions. Client Response/Progress/Benefit: [] Client responded well to session, engaged in the experiential activity and attentive throughout group processing. Client completed fear of failure worksheet and was able to identify thoughts and behaviors that reinforce personal fear of failure including getting hyper focused on not failing. Client participated in small group discussion regarding strategies to overcome fear of failure. Identified wanting to work on postive affirmations. Appeared to benefit from increased knowledge of strategies to combat fear of failure and gaining self-awareness. Client will continue IOP tx to increase self care and to reduce anxiety and avoidance. Narrative Note: []
--- NOTE | 2025-09-26 09:00 | BH.SGPN.GN ---
Behaviors/Verbalizations/Mental Status: [] Pt alert and oriented, Casually dressed and groomed. Eye contact good. Motor activity appropriate. Speech within normal limits. Affect congruent, mood anxious. Thoughts linear, logical, no signs of hallucinations or delusions. Reviewed pt?s symptom tracker today, denies suicidal ideation, plan, and intent.09/26/25 Client Response/Progress/Benefit: []Pt was an active participant in group discussions. Attentive. Per patients daily symptom tracker, pt indicates a 2/5 for depression and a 1/5 for anxiety, with 5 being severe. Pt's first mental health positive was finding a new outpatient therapist to see for continued support after finishing IOP. Pt stated that he was anxious about all of the paperwork that needed to be done, but is working on filling it out. Pt's other mental health positive was going out to dinner with a friend. Pt's reported that his stressor was feeling anxious about coming to group today. He stated that he did not feel that he had much to talk about, which made him nervous. Pt was supportive and attentive to others in the group. Pt seemed to benefit from support from peers. Will continue IOP tx to promote healthy coping mechanisms, decrease negative thinking patterns, and prevent decompensation.
--- NOTE | 2025-09-26 10:10 | BH.SGPN.GN ---
Behaviors/Verbalizations/Mental Status: [] Eye contact is good. Motor activity is appropriate. Appearance is casual. Speech is Appropriate. Mood is euthymic Affect is congruent. Thoughts are linear and logical. No evidence of psychosis. Client Response/Progress/Benefit: [] Pt engaged in session AEB listening attentively to others and providing input throughout. Pt engaged in activity, able to connect how it can be uncomfortable and difficult to practice acceptance when situations are out of one?s own control. Identified what they are struggling to accept in personal life. Worked with peer group to define acceptance and identify the benefits that acceptance can bring. Benefits included; reduced anger, self forgiveness, moving forward, and improved mental health. Seemed to benefit from increased awareness of the meaning as well as the importance of acceptance. Will continue in IOP to improve thought patterns, challenge distortions, and prevent decompensation. Narrative Note: []
--- NOTE | 2025-09-26 11:15 | BH.SGPN.GN ---
Behaviors/Verbalizations/Mental Status: [] Pt alert and oriented, casually dressed and groomed. Eye contact good. Motor activity appropriate. Speech within normal limits. Affect congruent, mood euthymic. Thoughts linear, logical, no signs of hallucinations or delusions. Client Response/Progress/Benefit: []Pt responded well to session AEB taking notes and contributing to discussion throughout. Pt engaged as group continued discussion on acceptance and the mental health benefits of practicing acceptance. Pt and peers identified what makes acceptance challenging and pt completed a self-reflection exercise on what is hard to accept in pt's life. Group identified strategies to increase acceptance. Pt noted wanting to work on ?looking at whats in my control vs what is not? as a strategy for improving acceptance. Pt appeared to benefit from gaining insight and learning strategies to increase acceptance. Pt will continue IOP tx to promote mood stability, reinforce healthy coping skills, and prevent decompensation. Narrative Note: []
--- NOTE | 2025-09-27 13:37 | BH.MTP_ITS ---
Treatment Plan Review Demographics Date of Admission:: 09/02/25 Date of Treatment Plan Review:: 09/27/25 Admitting Diagnoses:: Substance-induced psychotic disorder: Current Diagnoses:: Substance-induced psychotic disorder: Patient Status Patient's Response to Treatment:: Patient has demonstrated consistent attendance and participation in Intensive Outpatient Program (IOP) level of care. Engagement in group sessions has been variable but generally attentive, and patient appears motivated for treatment. Reports benefiting from IOP interventions and psychoeducation. Medication adherence remains consistent. Patient continues to maintain sobriety from alcohol, cannabis, and hallucinogens. Patient has responded positively to individual counseling sessions. He was provided psychoeducation regarding the relationship between cannabis use and psychosis, which he reviewed and discussed with the therapist. Patient demonstrates insight into the link between increased cannabis use and the onset of psychotic symptoms that led to hospitalization. He and the therapist have initiated development of an individualized relapse prevention plan for cannabis use in preparation for his return to college. Patient denies any psychotic symptoms, including hallucinations, delusions, or disorganized thinking, and has not endorsed suicidal ideation since admission to [facility]. Affect remains stable; thought processes are logical and goal-directed. Insight and judgment appear intact. Status of Current Problems and Symptoms: Primary symptoms include generalized anxiety and depressive features, characterized by low energy, diminished motivation, intermittent sadness, and significant anxiety related to situational stressors. Patient endorses excessive ruminative thinking and persistent worry about events beyond his control. He reports partial amnesia regarding events during his psychotic episode but expresses embarrassment over behaviors driven by irrational thought content.The goal of IOP will be to maintain therapeutic gains, stabilize mood, and enhance adaptive coping strategies. Continued abstinence from substances remains critical, along with strengthening relapse prevention skills for cannabis use, given its established link to prior psychotic symptoms. Reviewed patient?s DSM-5 Cross-Cutting Symptom Measure scores. Admission total was 11, which is considered low and indicative of minimal symptom severity. Three-week follow-up score remains unchanged at 11, suggesting no significant clinical decompensation during treatment. Progress Problem #1: Problem Name:: Shashi stability from psychosis Status of Goals:: obj1- not complete. The patient reviewed educational handouts regarding the relationship between cannabis use and psychosis. He demonstrated engagement and was able to participate in a meaningful discussion with the therapist about the material. The patient exhibited fair insight and expressed motivation to maintain abstinence from cannabis. Therapist and pt will review symptoms, warning signs, and intervention strategies for ross at his r equest in future sessions. obj2- Not complete. Pt was given a worksheet to begin to develop relapse prevention plan to manage cravings, triggers, and urges to use. Team Recommendations:: continue with current plans as pt is responding well to IOP level of care.
--- NOTE | 2025-09-30 10:10 | BH.SGPN.GN ---
Behaviors/Verbalizations/Mental Status: [] Pt alert and oriented, casual appearance, eye contact good. Motor activity appropriate. Speech within normal limits. Affect congruent. Mood euthymic. Thoughts linear, logical, no signs of hallucinations or delusions. Client Response/Progress/Benefit: [] Pt was an active participant in group discussions on defining conflict (internal/external) and possible benefits to conflict. Attentive during psychoeducation on conflict styles (avoidant, accommodating, competing, cooperative) and engaged during group discussion in which the group identified when it is beneficial to use conflict styles and pitfalls of each conflict style. Pt noted they connect most with avoidant style of conflict. Pt was an able to connect the impact current style of conflict has on functioning. Benefited from increased awareness of the impact of conflict styles on mental health. Will continue in IOP to promote healthy coping skills, challenge negative thoughts, and prevent decompensation.
--- NOTE | 2025-09-30 11:10 | BH.SGPN.GN ---
Behaviors/Verbalizations/Mental Status: []Client alert and oriented, casually dressed and groomed. Eye contact good. Motor activity appropriate. Speech within normal limits. Affect congruent, mood engaged. Thoughts linear, logical, no signs of hallucinations or delusions. Client Response/Progress/Benefit: [] Pt engaged in session AEB contributing to discussion and engaging in small group. Attentive during discussion on strategies for more effectively managing conflict in personal life. Pt noted current conflict resolution style uses the most is accommodating because doesn't want to cause any issues. Pt participated in small group for activity and did well practicing how to manage conflict scenarios. Pt given handout on fair fighting rules and how to identify common conflict barriers. Pt indicated what needs improvement in conflict for them- ?taking turns speaking.? Appeared to benefit from gaining strategies to help pt better manage conflict. Will continue IOP tx to reduce avoidance, improve mood stability, and combat distortions. ? Narrative Note: []
--- NOTE | 2025-10-01 09:00 | BH.SGPN.GN ---
Behaviors/Verbalizations/Mental Status: []Eye contact is good. Motor activity is appropriate. Appearance is casual. Speech is Appropriate. Mood is content. Affect is congruent. Thoughts are linear and logical. No evidence of psychosis. Reviewed daily check in sheet and pt denies SI, plan, or intent as of this date 09/30/25. Client Response/Progress/Benefit: [] Pt was an active participant in group discussions. Attentive. Did well to identify 2 mental health wins, which included being able to celebrate his sister's birthday with family. Additional win noted as following through with scheduling outpatient therapy and has the intake assessment tomorrow. Stressor noted as ongoing issues regarding his housing next semester. Appeared to benefit from provided support, encouragement, and feedback. Identified areas of progress and skills to maintain gains. Will continue IOP tx to improve mood stability, develop healthy coping repertoire, and prevent decompensation. Narrative Note: []
--- NOTE | 2025-10-02 09:00 | BH.SGPN.GN ---
Behaviors/Verbalizations/Mental Status: []Pt alert and oriented, casually dressed and groomed. Eye contact good. Motor activity appropriate. Speech within normal limits. Affect congruent, mood euthymic. Thoughts linear, logical, no signs of hallucinations or delusions. Reviewed pt?s symptom tracker, no risk for suicidal ideation, plan, or intent 10/02/25. Client Response/Progress/Benefit: []Pt was an active participant in group discussions. Attentive. Able to identify mental health wins including benefitting from the new medication and recently having a craving for marijuana but using healthy distractions instead. Pt's stressor today is ?Thanksgiving is kind of stressful because my mom gives me a list of things to do.? The group offered pt suggests managing this stressor and emotional support which pt reported was helpful. Pt is feeling ?optimistic? this morning. Pt receptive to feedback from peers. Benefited from group support, encouragement, and feedback. Progress noted. Pt will continue IOP tx to prevent decompensation, improve interpersonal effectiveness skills, and improve daily functioning. Narrative Note: []
--- NOTE | 2025-10-02 10:10 | BH.SGPN.GN ---
Behaviors/Verbalizations/Mental Status: [] Eye contact is good. Motor activity is appropriate. Appearance is casual. Speech is Appropriate. Mood is anxious. Affect is congruent. Thoughts are linear and logical. No evidence of psychosis. Client Response/Progress/Benefit: [] Pt responded well to session, attentive and engaged. Group participated in the discussion defining stigma as well as the stigma associated with mental health. Interactive discussion on common themes associated with mental health stigma which included being crazy, dramatic, lazy, attention-seeking, fake, broken, weak, or stupid. Pt worked with peers to begin discussion of what reinforces stigma, both socially and internally, and this was discussed further in the next group. Pt appeared to benefit from learning about the different types of stigma as well as gaining awareness of how stigma has personally impacted pt. Will continue in IOP to prevent decompensation, stabilize mood, increase healthy coping, and improve functioning to return to school. Narrative Note: [] Behaviors/Verbalizations/Mental Status: [] Eye contact is good. Motor activity is appropriate. Appearance is casual. Speech is Appropriate. Mood is anxious. Affect is congruent. Thoughts are linear and logical. No evidence of psychosis. Client Response/Progress/Benefit: [] Pt responded well to session, attentive and engaged. Group participated in the discussion defining stigma as well as the stigma associated with mental health. Interactive discussion on common themes associated with mental health stigma which included being crazy, dramatic, lazy, attention-seeking, fake, broken, weak, or stupid. Pt worked with peers to begin discussion of what reinforces stigma, both socially and internally, and this was discussed further in the next group. Pt appeared to benefit from learning about the different types of stigma as well as gaining awareness of how stigma has personally impacted pt. Will continue in IOP to prevent decompensation, stabilize mood, increase healthy coping, and improve functioning to return to school. Narrative Note: []
--- NOTE | 2025-10-02 11:00 | BH.MDN_ITS ---
Multi-Disciplinary Note Note 30-min Individual: Time Started:: 11:00 Date: 10/02/25 Purpose of session/treatment goals addressed:: Reviewed current symptoms and progress in [facility]. Utilized session to address treatment plan goal 1: objective 2. Eye Contact:: Good Motor Activity:: Appropriate Appearance:: Casual Speech:: Appropriate Mood:: Depressed Affect:: Congruent Thoughts:: Linear, Logical and No evidence of hallucinations/delusions noted Staff Interventions:: CBT techniques and taught coping skills Client Response:: Patient reported experiencing a depressive episode yesterday, noting these episodes occur everyone once in awhile. He described significant difficulty initiating activity, citing low energy and impaired motivation to get out of bed. During these episodes, he experiences intrusive negative cognitions, which he characterized as ?bad thoughts.? He denies current suicidal ideation, intent, or plan. However, he expressed passive wishes, stating thoughts consistent with survival ambivalence, such as ?I wish I hadn?t woken up. Patient reports diminished sense of purpose and motivation since withdrawing from college following recent psychotic episode. Current depressive symptoms appear to be exacerbated by situational stressors and ruminative thought patterns. During the most recent episode, patient noted an urge to use cannabis which is the first craving since admission to [facility]. He successfully implemented relapse prevention strategies until the craving subsided, demonstrating increased insight that depressive states serve as a trigger for substance use Risks/Concerns:: Denied suicidal thoughts on daily screener. Progress Toward Goals/Plan:: Slight decompensation noted due to added stressors however was able to implement healthy coping strategies. 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 On average pt has been sleeping 10 hours a ni ght however noticed sleep is down to 8 hours since lowering the medication. Continues to be consistent and engaged in IOP noting benefits. He is continuing to work on Cannabis Craving Management Worksheet. Plan is to complete that as well as psychoeducation on warning signs to psychosis/ross during the next session. Progress noted. Pt experienced obstacles this week and was able to utilize healthy coping skills. Time Stopped:: 11:30
--- NOTE | 2025-10-02 11:49 | PCM.BH.PN ---
Intake Vital Signs 09/06/25 11:01 10/02/25 11:49 Height 1.75 m 1.75 m Weight: 81.647 kg BP 144/76 H Pulse 78 Intake Visit Reasons: substance induced psychotic disorder Allergies No Known Allergies Allergy (Verified 09/06/25 10:49) Medications ?Medication ?Instructions ?Recorded ?Confirmed ?Type lithium carbonate 600 mg capsule 600 mg PO QHS 09/06/25 10/02/25 History buspirone 5 mg tablet 5 mg PO BID 10/02/25 10/02/25 History lithium carbonate 150 mg capsule 150 mg PO QHS 10/02/25 10/02/25 History lithium carbonate 300 mg capsule 300 mg PO QHS 10/02/25 10/02/25 History olanzapine 5 mg tablet 5 mg PO DAILY 10/02/25 10/02/25 History HPI () History of Present Illness History provided by: patient Chief complaint: Daytime fatigue HPI: -Current psychiatric medications: Zyprexa 5 mg, lithium 1050 mg, buspar 5mg BID -SUBJECTVE: Reports doing okay but some days still feeling depressed and anxious especially worrying about school. Sleeping well but has been having some daytime fatigue and low energy so Zyprexa was decreased to 10 mg and several days ago he went down to 5 mg. Additionally lithium was decreased to 1050 mg. Given the anxiety he was placed on BuSpar 5 mg twice daily. Denies any SI/HI. No AH/VH. Exam Mental Status Exam- Psych () Appearance casually dressed, adequately groomed and no apparent distress Attitude cooperative and calm Activity/Motor Behavior psychomotor slowing (There was improving) Speech other (Little bit slow) Mood apathetic Affect constricted Thought Process linear and other (a little thought blocking but better) Thought Content no delusions and no hallucinations Suicidal Ideation none Homicidal Ideation none Attention impaired Concentration impaired Sensorium/Orientation awake and alert Memory/Cognition intact Insight fair Judgement fair Assessment & Plan () Assessment & Plan (1) Substance-induced psychotic disorder: Plan: Denying any psychotic symptoms at this time. Given daytime fatigue/grogginess pts medications are being tapered. Railroad is now 1050mg and zyprexa now down to 5mg. Pt was given buspar 5mg BID and instructed to take in prn, given it's MOA pt will likely derive the most benefit from it being scheduled and uptitrated if needed for target symptoms. Given meds are actively adjutsed by pts outpt provider will defer further changes at this time. Pt overall w/ no psychotic symptoms, monitor for decompensation given adjustmed of medications Charges/Coding Behavior Health Behavior Health EST Pt E/M: 13666 Est Pt Level IV
== END 2025-10-06 23:59 ==
LOC: BHIOP 08:36
PROVIDERS: Referring Provider Internal Medicine; Visit Provider Internal Medicine
DX: F19.159 Other psychoactive substance abuse with psychoactive substance-induced psychotic disorder, unspecified (principal)
CPT/HCPCS: S9480; 90832; 90853

== ENCOUNTER 2025-10-07 08:05 | Outpatient (RCR) | payer OTHER, SELFPAY ==
--- NOTE | 2025-10-07 09:00 | BH.SGPN.GN ---
Behaviors/Verbalizations/Mental Status: [] Eye contact is good. Motor activity is appropriate. Appearance is casual. Speech is Appropriate. Mood is euthymic. Affect is full. Thoughts are linear and logical. No evidence of psychosis. Reviewed daily check in sheet and no reports of suicidal ideations Client Response/Progress/Benefit: [] Pt participated when prompted. Attentive. States he had a ?good holiday? and feels ? mentally recharged?. He shared some mental health wins. Overall progress noted. Benefited from group support, encouragement, and feedback. Will continue in IOP to prevent decompensation, stabilize mood, and improve functioning to return to work. Narrative Note: []
--- NOTE | 2025-10-07 10:40 | BH.MDN ---
Multi-Disciplinary Note Note 45-min Individual: Time Started:: 10:40 Date: 10/07/25 Purpose of session/treatment goals addressed:: Utilized the session review current symptoms and progress. Addressed treat goal 1 (objs 1/2). Eye Contact:: Fair Motor Activity:: Appropriate Appearance:: Casual Speech:: Appropriate Mood:: Anxious Affect:: Congruent Thoughts:: Linear, Logical and No evidence of hallucinations/delusions noted Staff Interventions:: thought challenging, psychoeducation on: (Bipolar/ross) and other (complete cannabis cravings worksheet and plan.) Client Response:: he patient reported feeling ?mentally recharged? following the holiday period, noting increased awareness of the positive impact of social engagement on mental health and overall quality of life. A brief psychoeducational discussion was held regarding the potential consequences of limited social interaction, including increased risk for mood dysregulation and social isolation. The session focused on reviewing and enhancing the patient?s Cannabis Craving Management Plan, which had been completed prior to the appointment. Together, we walked through the structured steps of the individualized plan: Craving Identification: Recognizing early signs and triggers. Normalization: Reinforcing that cravings are a common experience and typically decrease in intensity over time. Cognitive Restructuring: Identifying maladaptive thoughts contributing to cravings and generating alternative, adaptive thoughts to challenge them. Consequences Analysis: Exploring short-term and long-term consequences of cannabis use. Behavioral Strategies: Implementing distraction techniques for at least 20 minutes to allow the craving to subside. Additionally, we reviewed a psychoeducational handout on Bipolar Disorder, specifically addressing symptoms of ross and hypomania. The handout highlighted hallmark features such as elevated mood, decreased need for sleep, and impulsivity, as well as recommended steps for early intervention should manic symptoms emerge. The patient was engaged and responsive throughout the session, demonstrating insight and active participation in discussions Risks/Concerns:: No risks or concerns noted. Progress Toward Goals/Plan:: Progress noted. Consistent attendance in IOP. Medication compliant. Pt reports benefiting from IOP and remains sober. Pt continues to experience depression, sadness, anxiety, uncertainty, and fogginess however overall reports improvement. Since starting medication he has noticed some struggles with recall, attention, and focus. Also reports drowsiness and fatique. Some concern this will impact academics when he returns to school. Continues rumination on situational stressors related to returning to school specifically regarding housing and scholarship status. Therapist processed this stressors and challenged some rigid beliefs which was beneficial. We discussed discharge which is most likely going to happen late next week. Time Stopped:: 11:15
--- NOTE | 2025-10-07 11:15 | BH.SGPN.GN ---
Behaviors/Verbalizations/Mental Status: [] Client alert and oriented, casually dressed and groomed. Eye contact good. Motor activity appropriate. Speech within normal limits. Affect congruent, mood euthymic. Thoughts linear, logical, no signs of hallucinations or delusions. Client Response/Progress/Benefit: [] Client was an active participant throughout AEB contributing to discussion, providing personal examples, and taking notes. Client processed emotions felt in the activity and how they coped in the moment. Client provided input during discussion on the types of support our supports can provide. Client reflected on the types of support their current support system provides. Reported after identifying what type of supports they receive; they gained awareness that they could benefit from more emotional supports. Client identified steps to achieve this by being willing to open up more to others. Client seemed to benefit from identifying the type of support client needs to work on improving. Client recommended to continue IOP tx to prevent decompensation, reduce isolation, and increase communication skills. Narrative Note: []
--- NOTE | 2025-10-10 09:05 | BH.SGPN.GN ---
Behaviors/Verbalizations/Mental Status: [] Eye contact is good. Motor activity is appropriate. Appearance is casual. Speech is Appropriate. Mood is anxious. Affect is congruent. Thoughts are linear and logical. No evidence of psychosis. Reviewed daily check in sheet and no reports of suicidal ideations Client Response/Progress/Benefit: [] Pt participated at times during the group discussions. Attentive. Pt followed through with a difficult and anxiety producing task. Proud of himself as completing the task ended up ease some of his anxiety. Feeling less stressed. Feeling optimistic today. Pt also met with his new outpatient therapist for the first time yesterday as well. Feeling ? optimistic?. Progress noted. Benefited from group support, encouragement, and feedback. Will continue in IOP to prevent decompensation, stabilize psychosis, and improve functioning to return to school. Narrative Note: []
--- NOTE | 2025-10-10 10:10 | BH.SGPN.GN ---
Behaviors/Verbalizations/Mental Status: [] Eye contact is good. Motor activity is appropriate. Appearance is casual. Speech is Appropriate. Mood is euthymic Affect is congruent. Thoughts are linear and logical. No evidence of psychosis. Client Response/Progress/Benefit: [] Pt was an active participant in group discussion and activity. Attentive during psychoeducation on what it means to take action. Pt identified symptoms that they want to take gain control over which included constant worry of future and easily overwhelmed. Increased insight into what could be holding patient back from mental wellness and the importance of taking action on symptoms and obstacles rather than avoiding or ignoring. Will continue in IOP to increase self care, prevent decompensation, and increase overall functioning. Narrative Note: []
--- NOTE | 2025-10-10 11:30 | BH.MDN_ITS ---
Multi-Disciplinary Note Note 30-min Individual: Time Started:: 11:35 Date: 10/11/25 Purpose of session/treatment goals addressed:: Reviewed progress and current symptoms. Addressed all treatment plan goals and objectives. Eye Contact:: Good Motor Activity:: Appropriate Appearance:: Casual Speech:: Appropriate Mood:: Euthymic Affect:: Full Thoughts:: Linear, Logical and No evidence of hallucinations/delusions noted Staff Interventions:: psychoeducation on: (anxiety/calming strategies; positive psychology) and discharge planning Client Response:: Patient successfully followed through with contacting the [employer] department supervisor to clarify the status of his scholarships for the upcoming semester. This issue has been a significant psychosocial stressor since the start of [facility], as patient had previously emailed the Him[facility] multiple times without receiving a response. The conversation provided clarity, which resulted in a noticeable reduction in intolerance of uncertainty and associated anxiety. 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 He exhibits a pattern of excessive rumination and anticipatory anxiety, often struggling to take proactive steps toward resolving stressors that perpetuate uncertainty. During session, patient responded well to discussion on this dynamic and engaged in identifying strategies to manage uncertainty, including acceptance-based approaches and behavioral activation through taking concrete action. Risks/Concerns:: no risks or concerns noted. Denied suicidal thoughts on daily screener Progress Toward Goals/Plan:: Patient demonstrates continued progress in treatment. Reports medication adherence and maintains sobriety. Actively gaining insight and benefiting from the structure and support provided by [facility]. Responded well to interventions and psychoeducation during session. Patient has begun implementing affirmations and positive psychology techniques to enhance self- efficacy and confidence in managing stressors. We discussed anticipated discharge from [facility] level of care. Patient expressed hesitancy, citing enjoyment of the program?s structure and support. Current plan is to discharge in approximately two weeks. Patient is already linked with outpatient psychiatry and counseling services, ensuring continuity of care. For the remainder of [facility], patient wishes to continue focusing on anxiety management strategies, including cognitive restructuring, behavioral activation, and coping skill reinforcement. Time Stopped:: 12:00
--- NOTE | 2025-10-14 09:00 | BH.SGPN.GN ---
Behaviors/Verbalizations/Mental Status: [] Pt alert and oriented, Casually dressed and groomed. Eye contact good. Motor activity appropriate. Speech within normal limits. Affect congruent, mood anxious. Thoughts linear, logical, no signs of hallucinations or delusions. Reviewed pt?s symptom tracker today, denies suicidal ideation, plan, and intent.10/14/25 Client Response/Progress/Benefit: []Pt was an active participant in group discussions. Attentive. Per patients daily symptom tracker, pt indicates a 2/5 for depression and a 1/5 for anxiety, with 5 being severe. 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 His other mental health positive was going to a family friend's birthday libertarian, and trying to socialize and not be on his phone as much. Pt stated that he struggles with social anxiety, and typically will spend most gatherings doom scrolling on his phone. Pt asked the other group members for advice about how to overcome social anxiety, which was pt's current stressor. Pt was supportive and attentive to others in the group. Pt seemed to benefit from support from peers. Will continue IOP tx to promote healthy coping mechanisms, decrease negative thinking patterns, and prevent decompensation.
--- NOTE | 2025-10-14 10:10 | BH.SGPN.GN ---
Behaviors/Verbalizations/Mental Status: [] Eye contact is good. Motor activity is appropriate. Appearance is casual. Speech is Appropriate. Mood is euthymic. Affect is full. Thoughts are linear and logical. No evidence of psychosis. Client Response/Progress/Benefit: [] Pt participated during the group discussion, providing input and remaining attentive during psychoeducation. Participated in experiential activity. Pt contributed during interactive discussion on the consequences of unhealthy expression of emotions. Provided input on the 3 important stages to managing emotions which included Awareness, Regulation, and Communication. Pt was able to relate and make connections between the experiential activity and the overall topic. Benefited from increased awareness of how stress and emotions can impact one's ability to communicate. Will continue in IOP to prevent decompensation/readmission to psych unit, stabilize psychosis, and improve functioning to return to school. Narrative Note: []
--- NOTE | 2025-10-15 09:05 | BH.SGPN.GN ---
Behaviors/Verbalizations/Mental Status: [] Eye contact is good. Motor activity is appropriate. Appearance is casual. Speech is Appropriate. Mood is euthymic. Affect is full. Thoughts are linear and logical. No evidence of psychosis. Reviewed daily check in sheet and no reports of suicidal ideations Client Response/Progress/Benefit: [] Pt participated at times during the group discussions. Attentive. Able to identify mental health wins and healthy habits. Completing tasks around the house and spending time with family. Continues with his weekly routines which have also been beneficial to his mental health. He discused anxiety related to returning to college in November. Emotion for today is calm. Progress noted. Benefited from group support, encouragement, and feedback. Will continue in IOP to prevent decompensation/re-admissin to psych unit, stablize psychosis, and improve functioning to return to college. Narrative Note: []
--- NOTE | 2025-10-15 10:00 | BH.SGPN.GN ---
Behaviors/Verbalizations/Mental Status: [] Eye contact good. Motor activity appropriate. Appearance casual. Speech is appropriate. Mood is calm. Affect is congruent. Thoughts are linear and logical. no evidence of psychosis. Client Response/Progress/Benefit: []Pt was engaged and active participant in group discussion. Attentive during psychoeducation and interactive discussion on coping skills. why people use unhealthy coping skills. How to replace unhealthy coping skills, internal vs external coping skills. Attentive as peers came up with list of unhealthy coping skills. Group discussed the effects of maladaptive coping skills on mental health. Benefited from increased understanding of unhealthy coping skills and the need for developing healthy internal and external coping skills. Actively participated during experiential group activity and was able to relate activity to group topic. Will continue IOP to promote healthy coping skills, decrease negative thinking patterns, and prevent decompensation.
--- NOTE | 2025-10-15 11:30 | BH.MDN_ITS ---
Multi-Disciplinary Note Note 30-min Individual: Time Started:: 11:30 Date: 10/15/25 Purpose of session/treatment goals addressed:: Reviewed current progress and symptoms. Discharge planning. Eye Contact:: Good Motor Activity:: Appropriate Appearance:: Casual Speech:: Appropriate Mood:: Euthymic Affect:: Full Thoughts:: Linear, Logical and No evidence of hallucinations/delusions noted Staff Interventions:: discharge planning and other (reviewed treatment plan objectives. ) Client Response:: Patient reports a reduction in anxiety symptoms compared to the previous week. He attributes improvement to the use of affirmations and positive psychology interventions, which have enhanced his sense of self- efficacy and confidence in managing psychosocial stressors. Patient states he is engaging in less ruminative thinking. Primary stressor involves anticipated transition back to college in mid-November. Patient expresses apprehension related to potential social triggers, stating, ?It will be awkward.? He reports residual concerns stemming from his prior psychotic episode, during which he experienced irrational thoughts that negatively impacted certain social supports (e.g., fraternity and roommates). Patient notes that his roommates have not responded to inquiries about renewing their lease, creating uncertainty regarding housing arrangements. He demonstrates insight into the need to make a decision within the next few weeks. Patient reports positive family relationships, successful completion of daily tasks, and optimism about returning to school. He continues to engage in regular physical exercise, remains medication compliant, and reports improved sleep quality. Denies significant depressive symptoms, suicidal ideation, or homicidal ideation. Patient has maintained sobriety from alcohol, cannabis, and hallucinogens since inpatient hospitalization. Risks/Concerns:: No risks or concerns noted. Progress Toward Goals/Plan:: Patient has demonstrated consistent engagement and participation in Intensive Outpatient Program (IOP). Progress is evident, and patient continues to present with clinical stability. No evidence of psychosis observed. Patient denies hallucinations, delusions, or racing thoughts since psychiatric admission. Affect is stable; thought processes remain logical, coherent, and goal-directed. Insight and judgment are intact. Patient reports medication adherence and expresses mild concerns regarding cognitive side effects, specifically ?brain fog? and difficulty with retention, which he attributes to current medications. He is actively collaborating with outpatient providers on titration of olanzapine (Zyprexa) to optimize therapeutic benefit and minimize adverse effects. Patient has successfully met treatment plan objectives, including: Identifying the relationship between substance use and psychosis. Developing a comprehensive relapse prevention plan for cannabis use. Patient no longer meets clinical criteria for IOP level of care. He is agreeable to discharge on 10/17/2025. Currently linked with outpatient supports, including a therapist through [facility] and a psychiatric provider ([place]) through [facility]. Discharge is appropriate at this time with continued outpatient follow-up recommended.
--- NOTE | 2025-10-17 09:05 | BH.SGPN.GN ---
Behaviors/Verbalizations/Mental Status: [] Eye contact is good. Motor activity is appropriate. Appearance is casual. Speech is Appropriate. Mood is euthymic. Affect is full. Thoughts are linear and logical. No evidence of psychosis. Reviewed daily check in sheet and no reports of suicidal ideations Client Response/Progress/Benefit: [] Pt participated at times during the group discussions. Attentive. Shared with the group that he is set to discharge successfully from [facility] today. He recently started journaling and talked about the mental health benefits that has had. Feels ?optimistic? about returning to college and his overall mental health. Progress noted. Benefited from group support, encouragement, and feedback. Will be discharged today Narrative Note: []
--- NOTE | 2025-10-17 10:10 | BH.SGPN.GN ---
Behaviors/Verbalizations/Mental Status: [] Client alert and oriented, casually dressed and groomed. Eye contact fair. Motor activity appropriate. Speech within normal limits. Affect congruent, mood anxious. Thoughts linear, logical, no signs of hallucinations or delusions. Client Response/Progress/Benefit: [] Client responded well to session, attentive during psychoeducation on SMART goals (Specific, Measurable, Achievable, Realistic, and Time-bound) and engaged in group experiential activity. Participated in an interactive discussion with peers in which they worked together to define what a goal is and the benefits of having goals. Group identified benefits as; helps MH, improves motivation, improves confidence, and personal growth. Participated in interactive discussion in which group identified barriers to setting goals and following through with goals. Group barriers included health, lack of supports, making excuses, and avoidance. Benefited from increased awareness of benefits and strategies for goal-setting. Will continue in IOP tx to promote mood stability, increase healthy coping skills, and prevent decompensation.
--- NOTE | 2025-10-17 11:10 | BH.SGPN.GN ---
Behaviors/Verbalizations/Mental Status: []Pt alert and oriented, neatly dressed and groomed. Eye contact good. Motor activity appropriate. Speech within normal limits. Affect congruent, mood content. Thoughts linear, logical, no signs of hallucinations or delusions Client Response/Progress/Benefit: [] Pt was engaged during discussion and willing to complete the worksheet challenging them to develop a personal SMART goal. Pt chose the goal of spending 30 minutes working out 3x this week. Pt identified low motivation and fatigue as barriers. Identified solutions such as reminding self how accomplished he will feel and opposite action. Pt receptive to identifying solutions for these barriers and willing to begin working on this goal. Benefited from this group by developing a short-term SMART goal related to mental health. Will continue IOP tx to prevent decompensation, improve daily functioning, and increase mood stability. ? Narrative Note: []
--- NOTE | 2025-10-17 13:04 | BH.DS ---
Discharge Summary Demographics Date of Admission:: 09/02/25 Discharge Date: 10/17/25 Presenting Problems at Admission:: Pt is a 20 year old male with dx of Bipolar I, severe, most recent episode manic. Recently admitted for psychosis from 07/20/25-07/29/25 at [facility]. Over the course of a couple weeks prior to admission pt displayed disorganized thoughts, delusions, mormon pre-occupation, and hallucinations. According to pt he believed that he was a prophet and ruminating extensively on paranoid delusions that certain individuals had plans to attack him. There no specific trigger however pt believes that increased substance use (LSD/cannabis) more than likely significantly contributed to his episode. No previous hx of ross or psychosis. Oddly enough his mother had a similar psychotic event around his age which was substance induced. His episode occurred on the campus of his college and a few of his delusions include peers and even a professor. Currently he withdrew from his classes and is living at home. Believes that his medications are helping however continues to report racing thoughts and brain fog. Endorses moderate depression due to abupty changes (stopped college, moved back home, psychiatric admission) with feelings of loneliness and isolation. Denies HI. No overt psychosis noted since discharge with the exception of an auditory hallucination which pt described as a voice from God. Hx of LSD and cannabis use, however sober since psychiatric admission. Discharge Diagnoses:: Substance Induced Psychosis Reason for Discharge:: Patient has successfully met treatment plan objectives, including: Identifying the relationship between substance use and psychosis. Developing a comprehensive relapse prevention plan for cannabis use. Treatment Progress During Treatment & Response: Consistent attendance in [facility] level of care. Patient reports positive family relationships, successful completion of daily tasks, and optimism about returning to school. He continues to engage in regular physical exercise, remains medication compliant, and reports improved sleep quality. Denies significant depressive symptoms, suicidal ideation, or homicidal ideation. Patient has maintained sobriety from alcohol, cannabis, and hallucinogens since inpatient hospitalization. Progress is evident, and patient continues to present with clinical stability. No evidence of psychosis observed. Patient denies hallucinations, delusions, or racing thoughts since psychiatric admission. Affect is stable; thought processes remain logical, coherent, and goal-directed. Insight and judgment are intact. Reviewed outcome measurement which shows a 9% decrease in symptoms since admission. It should be noted that the client?s admission score on the DSM-5 Level 1 Cross-Cutting Symptom Measure was low (11). Therefore, the primary objectives of IOP have been to prevent symptom decompensation following psychiatric admission, provide psychoeducation, and develop a comprehensive relapse prevention plan. Issues Still to be Addressed:: Pt would benefit from continued counseling on maintaining sobriety from cannabis and hallucinogens as these substance more than likely trigger psychotic episode. Pt would also benefit from continue work on managing depression, stress, and anxiety. Patient reports medication adherence and expresses mild concerns regarding cognitive side effects, specifically ?brain fog? and difficulty with retention, which he attributes to current medications. He is actively collaborating with outpatient providers on titration of olanzapine (Zyprexa) to optimize therapeutic benefit and minimize adverse effects. Discharge Recommendations/Instructions:: Pt is linked with Kei Millan, size roller operator at [place] [id number] for medication management. Also linked with a therapist at [facility]. Discharge Handout
== END 2025-10-17 12:06 | disposition home or self-care (01) ==
LOC: BHIOP 08:05
PROVIDERS: Referring Provider Internal Medicine; Visit Provider Internal Medicine
DX: F19.159 Other psychoactive substance abuse with psychoactive substance-induced psychotic disorder, unspecified (principal)
CPT/HCPCS: S9480; 90832; 90834; 90853